=== PATIENT | male | born 1975 | race Two or more races ===

== ENCOUNTER 2020-08-06 04:34 | Emergency (ER) | payer OTHER ==
[~2020-08-06] VITALS: Ht 177.8 cm; Wt 100.0 kg
[2020-08-06] MEDS ORDERED: SODIUM CHLORIDE 0.9% 1,000 ML IV ONE (05:15)
[2020-08-06 05:18] LABS: BASOPHILS % 0.4 % (0.0-2.0); EOSINOPHILS % 1.9 % (0.0-5.0); HEMATOCRIT. 42.2 % (42.0-52.0); HEMOGLOBIN. 14.1 g/dL (14.0-18.0); LYMPHOCYTES % 35.2 % (20.0-50.0); MEAN CORPUSCULAR HEMOGLOBIN 27.9 pg (28.0-32.0); MEAN CORPUSCULAR VOLUME 83.7 fL (80.0-94.0); MEAN PLATELET VOLUME 9.4 fl (7.4-10.4); MONOCYTES % 9.4 % (2.0-8.0); NEUTROPHILS % 53.1 % (40.0-76.0); PLATELET 231 x1000/uL (130-400); RED BLOOD CELL COUNT 5.04 mill/uL (4.7-6.1); RED CELL DISTRIBUTION WIDTH 12.9 % (11.6-14.6)
[2020-08-06 05:33] LABS: CHLORIDE 103 mEq/L (98-107)
[2020-08-06 05:37] LABS: ETHANOL BLOOD < 10 mg/dL
[2020-08-06 07:15] VITALS: BP 122/68
[2020-08-06] MEDS ORDERED: NALO4SPR BOTHNSTRLS (07:41)
== END 2020-08-06 11:34 | disposition home or self-care (01) ==
LOC: ER 04:34
DX: T40.2X1A Poisoning by other opioids, accidental (unintentional), initial encounter (principal); T40.411A Poisoning by fentanyl or fentanyl analogs, accidental (unintentional), initial encounter; R55 Syncope and collapse; R41.82 Altered mental status, unspecified; F11.188 Opioid abuse with other opioid-induced disorder; Y93.89 Activity, other specified; Y92.59 Other trade areas as the place of occurrence of the external cause
CPT/HCPCS: 36415; 71045; 80053; 80307; 80320; 80329; 84443; 85025; 93005; 96360; 99285; J7030; G0480